=== PATIENT | male | born 1940 | race Caucasian/White ===

== ENCOUNTER 2019-06-16 09:02 | Day surgery (SDC) | payer MEDICARE, OTHER ==
[~2019-06-16] VITALS: Ht 170.2 cm; Wt 72.3 kg
[~2019-06-16 09:02] MED LIST: LESCOL XL80 MG PO; SYNTHROID0.15 MG PO
[2019-06-16 09:37] VITALS: BP 127/92; PULSE 83; TEMP 97.4
[2019-06-16] MEDS ORDERED: PRAVACHOL 40MG40 MG PO (09:47)
[2019-06-16] MEDS ORDERED: SYNTHROID0.137 MG PO (09:48)
[2019-06-16] MEDS ORDERED: SYNTHROID 0.10.15 MG PO (09:49)
--- NOTE | 2019-06-16 09:51 | NUR ---
TO RM AT 0910- CALL LIGHT IN REACH AT BEDSIDE.
[2019-06-16 10:55] VITALS: BP 113/73; PULSE 78; TEMP 97.2
--- NOTE | 2019-06-16 10:55 | NUR ---
Pt returned via cart to [facility]. Spouse present in room. Pt SBA to recliner in bay. Legs elevated, call light in reach. VSS-see flowsheet. Given jello and water per request. Denies other needs.
[2019-06-16 11:00] VITALS: BP 112/80; PULSE 79
[2019-06-16 11:12] VITALS: TEMP 97.2
[2019-06-16 11:15] VITALS: BP 107/79; PULSE 72
--- NOTE | 2019-06-16 11:50 | NUR ---
VS remain stable. Pt tolerated jello and water. Dr Maya in to visit with pt and spouse post procedure. IV removed. Discharge teaching completed, pt and spouse verbalized understanding. Taken via wheelchair to private vehicle for dc home with driving.
== END 2019-06-16 11:50 | disposition home or self-care (01) ==
LOC: SDCO 09:02
DX: Z12.11 Encounter for screening for malignant neoplasm of colon (principal); D12.3 Benign neoplasm of transverse colon; K57.30 Diverticulosis of large intestine without perforation or abscess without bleeding; E78.00 Pure hypercholesterolemia, unspecified; Z90.49 Acquired absence of other specified parts of digestive tract; Z86.010 Personal history of colon polyps
CPT/HCPCS: J2250; J3010; J7030

== ENCOUNTER 2022-07-31 17:32 | Inpatient (IN) | payer OTHER, MEDICARE ==
[~2022-07-31] VITALS: Ht 167.6 cm; Wt 73.9 kg
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
[~2022-07-31 17:32] MED LIST changes: +PRAVACHOL 40MG40 MG PO; +SYNTHROID 0.10.15 MG PO; +SYNTHROID0.137 MG PO
[2022-07-31 18:30] LABS: BASO # 0.1 K/mm3 (0.0-0.2); BASO % 0.8 % (0.0-2.0); EOS # 0.2 K/mm3 (0.0-0.7); EOS % 1.3 % (0.0-4.0); GRAN # 9.2 K/mm3 (1.4-6.5); GRAN % 76.1 % (42.2-75.2); HEMATOCRIT 45.1 % (42.0-52.0); HEMOGLOBIN 15.2 g/dl (13.5-18.0); LYMPH # 1.6 K/mm3 (1.2-3.4); LYMPH % 13.5 % (20.0-51.0); MEAN CELL VOLUME 88 fl (80.0-100.0); MEAN CORPUSCULAR HEMOGLOBIN 30 pg (27-31); MEAN CORPUSCULAR HGB CONC 34 g/dl (33.0-37.0); MEAN PLATELET VOLUME 10.4 fl (7.4-10.4); MONO # 0.9 K/mm3 (0.1-0.6); MONO % 7.2 % (1.7-9.3); PLATELET COUNT 250 K/mm3 (130-400); RED BLOOD COUNT 5.12 M/mm3 (4.20-5.60); REDCELL DISTRIBUTION WIDTH-CV 13.8 % (11.5-14.5)
[2022-07-31 18:48] LABS: ALBUMIN 4.1 gm/dL (3.4-4.8); BILIRUBIN,TOTAL 0.3 mg/dL (0.2-1.2); CALCIUM 9.4 mg/dL (8.4-10.2); CREATININE, serum 1.36 mg/dL (0.72-1.25); POTASSIUM 3.7 mmol/L (3.5-4.5); TOTAL PROTEIN 7.2 gm/dL (6.2-8.1)
[2022-07-31] MEDS ORDERED: PROAIR HFA0.09 MG/AC IH (20:37)
[2022-07-31] MEDS ORDERED: ZYRTEC 10MG10 MG PO (20:37)
[2022-07-31] MEDS ORDERED: SYNTHROID0.1 MG/TAB PO (20:37)
[2022-07-31] MEDS ORDERED: PRAVACHOL 40MG40 MG PO (20:38)
[2022-07-31 23:36] VITALS: BP 147/88; PULSE 68; TEMP 98
[2022-08-01] VITALS (9 sets, daily range): BP systolic 111–167; BP diastolic 65–84; PULSE 68–82; TEMP 98–99.2
[2022-08-01 06:47] LABS: BASO # 0.1 K/mm3 (0.0-0.2); BASO % 0.5 % (0.0-2.0); EOS % 0.1 % (0.0-4.0); GRAN # 10.6 K/mm3 (1.4-6.5); GRAN % 83.4 % (42.2-75.2); HEMATOCRIT 39.5 % (42.0-52.0); LYMPH # 0.9 K/mm3 (1.2-3.4); LYMPH % 7.3 % (20.0-51.0); MEAN CELL VOLUME 89 fl (80.0-100.0); MEAN CORPUSCULAR HEMOGLOBIN 29 pg (27-31); MEAN CORPUSCULAR HGB CONC 33 g/dl (33.0-37.0); MEAN PLATELET VOLUME 11.2 fl (7.4-10.4); MONO # 1.1 K/mm3 (0.1-0.6); MONO % 8.3 % (1.7-9.3); PLATELET COUNT 206 K/mm3 (130-400); RED BLOOD COUNT 4.46 M/mm3 (4.20-5.60); REDCELL DISTRIBUTION WIDTH-CV 13.9 % (11.5-14.5)
[2022-08-01 07:02] LABS: CALCIUM 8.9 mg/dL (8.4-10.2); CREATININE, serum 1.04 mg/dL (0.72-1.25); POTASSIUM 3.8 mmol/L (3.5-4.5)
[2022-08-01 07:12] LABS: HEMOGLOBIN 13.1 g/dl (13.5-18.0)
--- NOTE | 2022-08-01 09:00 | NUR ---
Patient in room, tolerating clear liquids. Avoiding narcotics for pain. He has only taken tylenol. Planning on working with therapy.
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
--- NOTE | 2022-08-01 13:49 | NUR ---
Patient resting in bed. now in room, improving spirits.
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
--- NOTE | 2022-08-01 18:40 | NUR ---
Patient sitting up at edge of bed eating dinner, minimal needs. Safety reviewed with patient & his , reminding him the staff should be present when out of bed. He verbalized understanding.
--- NOTE | 2022-08-01 20:30 | NUR ---
PT IN BED, IS ALERT AND ORIENTED X4. HAS ABRASIONS X2 TO RLE. INT TO RAC. HS MEDS GIVEN. REPORTS MILD PAIN TO STERNUM AND LEFT RIBS, SCHEDULED ES TYLENOL GIVEN. WEARS OXYGEN AT NIGHT. NO NEEDS VOICED AT THIS TIME.
[2022-08-02] VITALS (13 sets, daily range): BP systolic 119–148; BP diastolic 71–86; PULSE 67–100; TEMP 97.7–98.7
--- NOTE | 2022-08-02 05:35 | NUR ---
SCHEDULED AM MEDS GIVEN. PT DENIES NEED FOR STRONGER PAIN MEDS. XRAY IN ROOM.
[2022-08-02 06:13] LABS: HEMATOCRIT 40.2 % (42.0-52.0); HEMOGLOBIN 13.4 g/dl (13.5-18.0); MEAN CELL VOLUME 89 fl (80.0-100.0); MEAN CORPUSCULAR HEMOGLOBIN 30 pg (27-31); MEAN CORPUSCULAR HGB CONC 33 g/dl (33.0-37.0); MEAN PLATELET VOLUME 10.6 fl (7.4-10.4); PLATELET COUNT 191 K/mm3 (130-400); RED BLOOD COUNT 4.54 M/mm3 (4.20-5.60); REDCELL DISTRIBUTION WIDTH-CV 14.2 % (11.5-14.5)
--- NOTE | 2022-08-02 09:07 | NUR ---
PT AAOX4 SITTING UP IN BED. ATE BREAKFAST. ZYRTEC AND 5ML FLUSH ADMINISTERED. ALSO IN ROOM. NO NEEDS AT THIS TIME.
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
--- NOTE | 2022-08-02 21:23 | NUR ---
2012-PT. IS ALERT AND ANSWERS ORIENTATION QUESTIONS APPROPRIATELY, BUT CAN BE FORGETFUL, APPEARED WORRIED ABOUT HIS IV SINCE I HAD NEEDED TO START A NEW ONE FOR HIS , HE ASKED IF I COULD FLUSH HIS IV, I LET HIM KNOW THAT I WAS GOING TO FLUSH HIS IV WHEN I BROUGHT HIS AND HIS WIFES SCHEDULED NIGHT TIME MEDICATION IN, PT. SAID THANKS, DENIED ANY FURTHER NEEDS AT THIS TIME, WILL CONTINUE TO MONITOR.
[2022-08-03] VITALS (12 sets, daily range): BP systolic 122–153; BP diastolic 83–102; PULSE 77–98; TEMP 97.4–98.4
[2022-08-03 06:38] LABS: BASO # 0.1 K/mm3 (0.0-0.2); BASO % 0.9 % (0.0-2.0); EOS # 0.2 K/mm3 (0.0-0.7); EOS % 2.6 % (0.0-4.0); GRAN # 6.8 K/mm3 (1.4-6.5); HEMATOCRIT 40.3 % (42.0-52.0); HEMOGLOBIN 13.3 g/dl (13.5-18.0); LYMPH % 11.1 % (20.0-51.0); MEAN CELL VOLUME 89 fl (80.0-100.0); MEAN CORPUSCULAR HEMOGLOBIN 30 pg (27-31); MEAN CORPUSCULAR HGB CONC 33 g/dl (33.0-37.0); MEAN PLATELET VOLUME 11.1 fl (7.4-10.4); MONO # 0.9 K/mm3 (0.1-0.6); MONO % 10.1 % (1.7-9.3); PLATELET COUNT 202 K/mm3 (130-400); RED BLOOD COUNT 4.51 M/mm3 (4.20-5.60); REDCELL DISTRIBUTION WIDTH-CV 14.1 % (11.5-14.5)
[2022-08-03 06:55] LABS: CALCIUM 8.9 mg/dL (8.4-10.2); CREATININE, serum 0.9 mg/dL (0.72-1.25); POTASSIUM 3.7 mmol/L (3.5-4.5)
--- NOTE | 2022-08-03 08:30 | NUR ---
PT AAOX4 SITTING AT BEDSIDE EATING BREAKFAST DURING ASSESSMENT. IN ROOM. DR. NICKERSON AT BEDSIDE. NO FURTHER NEEDS AT THIS TIME.
--- NOTE | 2022-08-03 09:11 | NUR ---
PT DOING WELL THIS MORNING. WAS NOTED UP WALKING THE HALLS WITH THERAPY. A&O X4. NO COMPLAINTS OF PAIN OR DISCOMFORT AT THIS TIME, IS ON SCHEDULED TYLENOL.
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
--- NOTE | 2022-08-03 21:35 | NUR ---
PT. ASKED IF HE COULD GO FOR A WALK IN THE [place], AND PT.'S ASKED IF HE COULD BRING HER SOME ICE WATER ON THE WAY BACK, I WALKED WITH PATIENT AROUND THE CORNER TO THE IPR SECTION OF THE [place], AND THEN BACK, PT. HAD HIS OXYGEN OFF FOR THIS WALK, DID NOT APPEAR SOB, OR EXHIBIT ANY SIGNS OF DISTRESS WHILE WALKING, PT. IS STABLE ON HIS FEET, DENIES ANY FURTHER NEEDS ONCE BACK IN HIS ROOM, WILL CONTINUE TO MONITOR.
[2022-08-04] VITALS (9 sets, daily range): BP systolic 119–151; BP diastolic 75–85; PULSE 64–97; TEMP 97.7–98.5
[2022-08-04 06:46] LABS: CALCIUM 9.2 mg/dL (8.4-10.2); CREATININE, serum 0.95 mg/dL (0.72-1.25); POTASSIUM 3.8 mmol/L (3.5-4.5)
[2022-08-04 06:57] LABS: BASO # 0.1 K/mm3 (0.0-0.2); BASO % 1.1 % (0.0-2.0); EOS # 0.4 K/mm3 (0.0-0.7); EOS % 4.4 % (0.0-4.0); GRAN # 5.6 K/mm3 (1.4-6.5); GRAN % 70.7 % (42.2-75.2); HEMATOCRIT 40.9 % (42.0-52.0); HEMOGLOBIN 13.6 g/dl (13.5-18.0); LYMPH # 1.2 K/mm3 (1.2-3.4); LYMPH % 14.7 % (20.0-51.0); MEAN CELL VOLUME 88 fl (80.0-100.0); MEAN CORPUSCULAR HEMOGLOBIN 29 pg (27-31); MEAN CORPUSCULAR HGB CONC 33 g/dl (33.0-37.0); MEAN PLATELET VOLUME 10.7 fl (7.4-10.4); MONO # 0.7 K/mm3 (0.1-0.6); MONO % 8.8 % (1.7-9.3); PLATELET COUNT 216 K/mm3 (130-400); RED BLOOD COUNT 4.66 M/mm3 (4.20-5.60)
[2022-08-04] MEDS ORDERED: TYLENOL 500MG500 MG PO (08:37)
--- NOTE | 2022-08-04 08:57 | NUR ---
pt sitting on side of bed eating breakfast with . meds given and assessment complete. pt denies pain. no needs at this time. call light in reach.
--- NOTE | 2022-08-04 09:10 | NUR ---
Rubber Stamp Maker followed up with P[employer]ient on the selection of a home health agency. Patient reports to want to recieve services from [facility]. SW sent referral to [facility] and contacted patient relations coordinator Sourav to notify of the referral. On chart review, Patient has been recieving O2 at night. SW followed-up with Patient to clarify O2 report from intake. Patient stated that he recieves O2 from [facility] and intends to continue on discharge.
--- NOTE | 2022-08-04 13:00 | NUR ---
Patient was accepted by [facility]. [facility] rep Sourav reports to intend to contact Patient to set up initial appointment. ANDREW collaborated with PAULO Foster to discuss transportation home as well as follow-up appointment in [place]. Patient reports that friends will transport them home at 1900 on this day. Additional transportation for appointments was coordinated through [facility] where Patient and attend. Pastor Mueller reports the intent to coordinate transportation for medical appointments for Patient and once discharged. P:[phone].
--- NOTE | 2022-08-04 17:10 | NUR ---
discharge instructions given to pt and . all questions answered. ride will arrive at approx 1900
--- NOTE | 2022-08-04 18:11 | NUR ---
ride here and pt and escorted to personal vehicle.
== END 2022-08-04 18:12 | disposition home health service (06) | DRG 564 ==
LOC: COL.ER 17:32 → SURG 20:42
PROVIDERS: Nurse Practitioner; Nurse Practitioner Family; Physician Assistant; Student in an Organized Health Care Education/Training Program; ADMIT Surgery
DX: S22.20XA Unspecified fracture of sternum, initial encounter for closed fracture (principal); J96.01 Acute respiratory failure with hypoxia; N17.9 Acute kidney failure, unspecified; S22.42XA Multiple fractures of ribs, left side, initial encounter for closed fracture; E78.5 Hyperlipidemia, unspecified; K59.00 Constipation, unspecified; E03.9 Hypothyroidism, unspecified; D72.829 Elevated white blood cell count, unspecified; J45.909 Unspecified asthma, uncomplicated; Y93.89 Activity, other specified; Y92.488 Other paved roadways as the place of occurrence of the external cause; Z99.81 Dependence on supplemental oxygen; Z86.16 Personal history of COVID-19; Z79.890 Hormone replacement therapy; Z90.89 Acquired absence of other organs; V49.9XXA Car occupant (driver) (passenger) injured in unspecified traffic accident, initial encounter; Z90.49 Acquired absence of other specified parts of digestive tract
CPT/HCPCS: A9284; J1170; J1650; J2405; J7030; Q9967

== ENCOUNTER → 2024-02-14 | Outpatient (CLI) | payer MEDICARE, OTHER ==
[~2024-02-14] MED LIST changes: +ASPIRIN 81M81 MG/TA2 PO; +Albuterol 0.083% Neb Soln 2.5 MG/3 ML UD IH ONE; +CRESTOR5 MG PO; +NIZORAL SHAMPO120 M1 TP; +PROAIR HFA0.09 MG/AC IH; +SYNTHROID0.1 MG/TAB PO; +TYLENOL 500MG500 MG PO; +ZYRTEC 10MG10 MG PO
== END ==
LOC: COL.CARD 10:45
DX: R06.02 Shortness of breath (principal); Z87.891 Personal history of nicotine dependence